=== PATIENT | female | born 1935 | race Caucasian/White ===

== ENCOUNTER 2023-09-16 09:15 | Outpatient (AMB) | payer MEDICARE, SELFPAY ==
--- NOTE | 2023-09-16 09:12 | AM.OFFWIN_ITS ---
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 Patient denies having any fevers, chills, ear pain, sore throat, chest pain, shortness of breath or weight gain. Patient has not taken any medication for treatment of her symptoms. [facility] Social History Patient Tobacco Use Status: Never used Tobacco Review of Systems Const All systems reviewed & are unremarkable except as noted in HPI and below Denies chills, Reports fatigue, Denies fever(s), Denies headache(s), Reports lethargy and Denies weight gain Eyes Reports no additional complaints ENT Reports no additional complaints and Denies headache(s) Card Reports no additional complaints and Denies dyspnea Resp Reports cough, Denies pain with cough, Denies dyspnea and Denies wheezing GI Reports no additional complaints Reports no additional complaints Musc Reports no additional complaints Skin/Breast Reports system reviewed and no additional complaints, except as documented Neuro Reports no additional complaints and Denies headache(s) Psych Reports no additional complaints Endo Reports no additional complaints and Reports fatigue Aller/Immun Denies wheezing Physical Exam Vital Signs: Last Vital Signs Temp 97.9 F 09/16/23 09:16 Pulse 68 09/16/23 09:16 BP 140/70 H 09/16/23 09:16 Pulse Ox 97 09/16/23 09:16 Oxygen Delivery Method Room Air 09/16/23 09:16 BMI result Body Mass Index 21.4 Patient is afebrile. Const General: cooperative, healthy appearing, comfortable, no acute distress, alert and awake Nutritional Appearance: thin Orientation/consciousness: patient oriented x3 Limitations: no limitations HEENT Head: Yes normal to inspection Ears: hearing grossly normal bilaterally, external ears normal, TM's normal bilaterally and EAC's normal General nose exam: Normal external nose present Face and sinus: Yes normal facial exam and Yes sinuses nontender Mouth: Normal oral and palatal mucosa present and moist mucous membranes Teeth and gingiva: dentition normal Throat: Yes postnasal drainage Neck Lymphatic: no lymphadenopathy noted Resp Effort & Inspection: normal respiratory effort, able to speak in complete sentences, no audible wheezes, no cough and no respiratory distress Auscultation: clear to auscultation bilaterally Cardio Rate: abnormal rate Rhythm: abnormal rhythm and abnormal rhythm irregularly irregular Heart sounds: Murmur heart sound present Skin General skin exam: no rashes or lesions noted Neuro General: patient oriented x3 Psych Appearance: grossly normal Mental Status: mental status grossly normal Insight: Good insight present (Psych) Judgement: Good judgement present (Psych) Results Reviewed Results Reviewed: CXR: no acute infiltrate. Assessment & Plan Assessment & Plan (1) Allergic rhinitis: Comment: There are no acute findings noted on chest x-ray. Code(s): J30.9 - Allergic rhinitis, unspecified Qualifiers: Allergic rhinitis trigger: pollen Allergic rhinitis seasonality: seasonal Qualified Code(s): J30.1 - Allergic rhinitis due to pollen Plan: Loratadine once daily times 14 days. Follow up with primary care physician within 10-14 days for a re-evaluation of symptoms. Orders: Orders XR chest 2V Today R05.9 - Cough, unspecified Coding Level of Care Code New Pt Level 4 (91228) Diagnoses Seasonal allergic rhinitis due to pollen J30.1 Allergic rhinitis trigger: pollen Allergic rhinitis seasonality: seasonal Time Spent (min) 30
[2023-09-16 09:16] VITALS: BP 140/70; PULSE 68; TEMP 36.6; O2SAT 97; BMI 21.4
== END 2023-09-16 10:57 | disposition home or self-care (01) ==
PROVIDERS: PCP Family Medicine; Visit Provider Physician Assistant
DX: J30.1 Allergic rhinitis due to pollen (principal)
CPT/HCPCS: 99204

== ENCOUNTER 2023-09-16 09:31 | Outpatient (REF) | payer MEDICARE, SELFPAY ==
--- NOTE | ~2023-09-16 | XR_ITS ---
EXAMINATION: XR CHEST CLINICAL INFORMATION: Cough COMPARISON: None available. TECHNIQUE: 2 views of the chest were obtained. FINDINGS: The cardiac silhouette is enlarged. Hilar and mediastinal contours are unremarkable. The lungs are clear. No pleural effusion or pneumothorax. Degenerative changes of the spine and mild scoliosis. XR/XR chest 2V IMPRESSION: Enlarged cardiac silhouette.
== END 2023-09-16 09:32 | disposition home or self-care (01) ==
LOC: HO.HMGCX 09:31
PROVIDERS: PCP Family Medicine; Visit Provider Physician Assistant
DX: R05.9 Cough, unspecified (principal)
CPT/HCPCS: 71046

== ENCOUNTER 2024-06-02 09:35 | Outpatient (AMB) | payer MEDICARE, SELFPAY ==
--- OUTSIDE RECORDS SUMMARY | 2024-06-02 09:36 | XMS_ITS | Continuity of Care Document ---
Author Organization [facility] Address [address] [place] [address]- Care Team Providers Care Willow Analyst Name Role Phone Cristiano MEZA, Missy Patel Primary Care Physician [phone] Encounter [facility] Date(s): 04/26/24 - 05[facility]03/24 [facility] [address] [address]- Attending Physician: Missy Quinonez MD Encounter Type: Office Visit Allergies, Adverse Reactions, Alerts No Known Allergies Immunizations Given and Recorded Vaccine Date Status Refusal Reason RSV vaccine preF3, recombinant 02/11/23 Recorded influenza virus vaccine, inactivated 12/15/22 Reji rded influenza virus vaccine, inactivated 11/11/21 Reji rded influenza virus vaccine, inactivated 12/19/20 Reji rded influenza virus vaccine, inactivated 12/07/19 Reji rded influenza virus vaccine, inactivated 12/22/18 Reji rded influenza virus vaccine, inactivated 1 01/20/18 Re corded influenza virus vaccine, inactivated 2 01/14/17 Gi mercedes influenza virus vaccine, inactivated 01/12/16 Give n influenza virus vaccine, inactivated 12/24/14 Give n influenza virus vaccine, inactivated 12/17/13 Give n influenza virus vaccine, inactivated 3 12/21/12 Gi mercedes influenza virus vaccine, inactivated 4 12/01/11 Gi mercedes influenza virus vaccine, inactivated 12/03/10 Give n influenza virus vaccine, inactivated 02/04/09 Give n influenza virus vaccine, inactivated 5 02/02/06 Gi mercedes SARS-CoV-2(COVID-19)mRNA-LNP vac([id number]) 12/15/22 Recorded zoster vaccine, inactivated 01/19/22 Recorded zoster vaccine, inactivated 11/11/21 Recorded [id number] 12y+ bivalent booster vax 12/04/21 Recorded SARS-CoV-2 (COVID-19) mRNA-1273 vaccine 07/03/21 R ecorded SARS-CoV-2 (COVID-19) mRNA BNT-162b2 vac 12/19/20 Recorded SARS-CoV-2 (COVID-19) mRNA BNT-162b2 vac 05/21/20 Recorded SARS-CoV-2 (COVID-19) mRNA BNT-162b2 vac 04/29/20 Recorded Influenza Virus Vaccine (oldterm) 11/27/19 Recorde d pneumococcal 13-valent vaccine 06/21/14 Given FluLaval (oldterm) 6 12/24/09 Given tetanus-diphtheria toxoids (Td) 05/26/09 Given tetanus-diphtheria toxoids (Td) 05/04/99 Given Zostavax (oldterm) 03/26/09 Given Influenza Inactive (IM) (oldterm) 7 01/12/08 Given Influenza Inactive (IM) (oldterm) 01/12/07 Given Pneumococcal Vaccine (oldterm) 10/09/99 Given 1Result Comment: [02/03/2018] as per pt done at [facility] 2Result Comment: [01/14/2017] [id number] 3Admin Note: FLUARIX 4Admin Note: VIS Given Flulaval 5Admin Note: GIVEN IN CLINIC SHMA 6Admin Note: Etece Tiffanie of [facility] [place] VIS [phone] given 7Admin Note: given in clinic Medications amLODIPine 5 mg oral tablet 1 tablet, By Mouth, Daily, # 90 tablet, 3 Refills, Maintenance, 04/26/24 9:56:00 AM EST, [id number], 160, cm, 04/26/24 9:44:00 EST, Height, 62.3, kg, 10/09/22 8:43:00 EDT, Dry Weight Start Date: 04/26/24 Status: Ordered Quantity: 90.0 Unit: tablet Repeat number: 4 cloNIDine 0.1 mg oral tablet 1, tablet, By Mouth, 2 times a day, for 90 days, # 180 tablet, Refills 3, Tot. Refills 3, PhysicianStop 06/18/25 4:15:00 PM EDT, 06/23/24 4:15:00 PM EDT, Route to Pharmacy Electronically, [id number], 160, cm, 04/26/24 9:44:00 EST, Height, 62.3, kg, 10/09/22 8:43:00 EDT, Dry Weight Start Date: 06/23/24 Stop Date: 06/18/25 Status: Ordered Quantity: 180.0 Unit: tablet Repeat number: 4 cloNIDine 0.1 mg oral tablet 1, tablet, By Mouth, 2 times a day, for 90 days, # 180 tablet, Refills 1, Tot. Refills 1, PhysicianStop 06/23/24 4:15:00 PM EDT, 12/26/23 4:15:00 PM EDT, Route to Pharmacy Electronically, [id number], 160, cm, 07/07/23 8:40:00 EDT, Height, 62.3, kg, 10/09/22 8:43:00 EDT, Dry Weight Start Date: 12/26/23 Stop Date: 06/23/24 Status: Ordered Quantity: 180.0 Unit: tablet Repeat number: 2 ferrous fumarate 325 mg oral tablet 1 tablet = 325 mg, By Mouth, Daily, for 90 days, # 90 tablet, 3 Refills, Hard Stop 07/01/24 8:55:00 AM EDT, 07/07/23 8:55:00 AM EDT, Tablet, [id number], Partial fill upon patient request if the prescription is for a schedule II opioid drug., 160, cm, 07/07/23 8:40:00 EDT, Height, 62.3, kg, 10/09/22 8:43:00 EDT, Dry Weight Start Date: 07/07/23 Stop Date: 07/01/24 Status: Ordered Quantity: 90.0 Unit: tablet Repeat number: 4 ferrous fumarate 325 mg oral tablet 1 tablet = 325 mg, By Mouth, Daily, # 90 tablet, 3 Refills, Maintenance, 07/01/24 8:55:00 AM EDT, Tablet, [id number], Partial fill upon patient request if the prescription is for a schedule II opioid drug., 160, cm, 04/26/24 9:44:00 EST, Height, 62.3, kg, 10/09/22 8:43:00 EDT, Dry Weight Start Date: 07/01/24 Status: Ordered Quantity: 90.0 Unit: tablet Repeat number: 4 ferrous sulfate 325 mg oral tablet 1 tablet = 325 mg, By Mouth, Daily, # 90 tablet, 0 Refills, Maintenance, 07/07/23 8:44:00 AM EDT, Tablet, Partial fill upon patient request if the prescription is for a schedule II opioid drug. Start Date: 07/07/23 Status: Ordered Quantity: 90.0 Unit: tablet Repeat number: 1 furosemide 40 mg oral tablet 40 mg, 1, tablet, By Mouth, Daily, for 90 days, # 90 tablet, Refills 3, Tot. Refills 3, Hard Stop 05/13/24 12:21:00 PM EST, 05/19/23 12:21:00 PM EST, Route to Pharmacy Electronically, [id number], Partial fill upon patient request if the prescription is for a schedule II opioid drug., 160, cm,10/09/22 8:38:00 EDT, Height, 62.3, kg, 10/09/22 8:43:00 EDT, Dry Weight Start Date: 05/19/23 Stop Date: 05/13/24 Status: Ordered Quantity: 90.0 Unit: tablet Repeat number: 4 furosemide 40 mg oral tablet 40 mg, 1, tablet, By Mouth, Daily, # 90 tablet, Refills 3, Tot. Refills 3, Maintenance, 05/13/24 12:21:00 PM EST, Route to Pharmacy Electronically, [id number], Partial fill upon patient request if the prescription is for a schedule II opioid drug., 160, cm, 04/26/24 9:44:00 EST, Height, 62.3, kg, 10/09/22 8:43:00 EDT, Dry Weight Start Date: 05/13/24 Stop Date: 05/08/25 Status: Ordered Quantity: 90.0 Unit: tablet Repeat number: 4 Metoprolol Tartrate 100 mg oral tablet 1 tablet, By Mouth, 2 times a day, # 180 tablet, 3 Refills, Maintenance, 03/08/24 10:30:00 AM EST, [id number], 160, cm, 12/29/23 17:03:00 EDT, Height, 62.3, kg, 10/09/22 8:43:00 EDT, Dry Weight Start Date: 03/08/24 Status: Ordered Quantity: 180.0 Unit: tablet Repeat number: 4 ProAir HFA 90 mcg/inh inhalation aerosol with adapter 2, puffs, Inhalation, Every 4 hours, PRN, # 1 each, Refills 5, Tot. Refills 5, Maintenance, 07/10/2209:06:00 AM EDT, Aerosol, Route to Pharmacy Electronically, [id number], [facility], 160, cm, 07/10/21 9:41:00 EDT, Height Start Date: 07/10/21 Status: Ordered Quantity: 1.0 Unit: each Repeat number: 6 simvastatin 20 mg oral tablet 1, tablet, By Mouth, Daily at bedtime, for 90 days, # 90 tablet, Refills 3, Tot. Refills 3, Physician Stop 06/24/24 10:04:00 AM EDT, 06/30/23 10:04:00 AM EDT, [id number], cm, 06/22/23 9:27:00 EDT, Height, 62.3, kg, 10/09/22 8:43:00 EDT, Dry Weight Start Date: 06/30/23 Stop Date: 06/24/24 Status: Ordered Quantity: 90.0 Unit: tablet Repeat number: 4 simvastatin 20 mg oral tablet 1, tablet, By Mouth, Daily at bedtime, for 90 days, # 90 tablet, Refills 3, Tot. Refills 3, Physician Stop 06/19/25 10:04:00 AM EDT, 06/24/24 10:04:00 AM EDT, [id number] 160, cm, 04/26/24 9:44:00 EST, Height, 62.3, kg, 10/09/22 8:43:00 EDT, Dry Weight Start Date: 06/24/24 Stop Date: 06/19/25 Status: Ordered Quantity: 90.0 Unit: tablet Repeat number: 4 warfarin 2.5 mg oral tablet 1 tablet, By Mouth, Daily, DIRECTED., # 90 tablet, 3 Refills, Maintenance, 04/26/24 9:56:00 AM EST, [id number], 160, cm, 04/26/24 9:44:00 EST, Height, 62.3, kg, 10/09/22 8:43:00 EDT, Dry Weight Start Date: 04/26/24 Status: Ordered Quantity: 90.0 Unit: tablet Repeat number: 4 warfarin 5 mg oral tablet 1 tablet = 5 mg, By Mouth, Daily, TAKE 1 TABLET EVERY DAY OR DIRECTED BY PCP OFFICE ACCORDING TOINR, # 90 tablet, 1 Refills, Maintenance, 03/09/23 10:00:00 AM EST, Tablet, [id number], Partial fill upon patient request if the prescription is for a schedule II opioid drug., 160, cm, 10/09/22 8:38:00 EDT, Height, 62.3, kg, 10/09/22 8:43:00 EDT, Dry Weight Start Date: 03/09/23 Status: Ordered Quantity: 90.0 Unit: tablet Repeat number: 2 Problem List Condition Confirmation Course Effective Dates Status Health Status Informant AF - Atrial fibrillation Confirmed Active AA (alcohol abuse) Confirmed Active 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 Chronic kidney disease, stage 3b 1 Confirmed Active Diabetic nephropathy Confirmed Active Gout Confirmed Active Hepatitis Confirmed Active Hypercholesterolemia Confirmed Active Hypertension Confirmed Active Anemia, iron deficiency Confirmed Active Cancer, colon Confirmed Active Megaloblastic erythropoiesis Confirmed Active Type 2 diabetes mellitus Confirmed Active 1Per chart review meeting GFR criteria Vital Signs Most recent to oldest [Reference Range]: 1 2 Height 160 cm (04/26/24 11:59 AM) 160 cm (04/26/24 9:44 AM) Weight 55.10 kg (04/26/24 9:44 AM) Oxygen Saturation [94-100 %] 98 % (04/26/24 9:44 AM) Pulse Rate [55-90 bpm] 68 bpm (04/26/24 9:44 AM) Body Mass Index [18.5-24.99 kg/m2] 21.52 kg/m2 (04/26/24 9:44 AM) Blood Pressure [90-138/55-84 mm Hg] 136/ 70mm Hg (04/26/24 11:59 AM) 146/72mm Hg *H* (04/26/24 9:44 AM) Temperature [96.8-100.4 DegF] 96.7 DegF *L* (04/26/24 9:44 AM) Mode of Delivery (Oxygen) Room air (04/26/24 9:44 AM) Blood pressure sites Arm, left (04/26/24 9:44 AM) Temperature Route Temporal (04/26/24 9:44 AM) Weight Obtained Via Standing scale (04/26/24 9:44 AM) Social History Social History Type Response Smoking Status Never smoker; Tobacc o user in household: Yes; Other: ; entered on: 06/21/14 Sex Sex Representation Female (finding) Note * Ashlie Martinez: PERFORM Event Display: Patient Education/Instruction Authored Date: [id number] Ambulatory Adult Visit Summary [facility] [address] [address] Name: CARLY ALEXANDRE : 1935?? Visit: 04/26/2024 09:20?? Ambulatory Visit Instructions ?? Your Care Team Primary Care Provider Missy Quinonez MD? This Visit Provider Missy Quinonez MD Your Diagnosis Hypercholesteremia Vitals Signs Temperature:??96.7 DegF??Low Height: 160 cm Pulse Rate: 68 bpm Weight: 55.1 kg Systolic Blood Pressure:??146 mm Hg??High Body Mass Index: 21.52 kg/m2 Diastolic Blood Pressure: 72 mm Hg Body surface area: 1.56 Oxygen Saturation: 98 % ?? What to do next Future Orders INR - Routine, Once, 06/17/23 3:00:00 EDT every 1 week(s) for 6 months, Future Order, [facility], Blood?? Lipid Panel - Routine, Once, 04/26/24 10:04:00 EST, Future Order, [facility], Blood?? Comprehensive Metabolic Panel - Routine, Once, 04/26/24 10:04:00 EST, Future Order, [facility], Blood?? Medications The list below reflects the information in our records and provided by you today along with any changes made during this visit. Please continue your medications until treatment is completed or stopped by your provider. If this is different from the information you have or there are other questions,please contact the prescribing provider. What How Much When Instructions New Amlodipine (amLODIPine 5 mg oral tablet) 1 tab(s) Oral Daily Refills: 3 Pickup at [id number] Changed Clonidine (cloNIDine 0.1 mg oral tablet) 1 tab(s) Oral Twice a day Duration: 90 Days Changed Clonidine (cloNIDine 0.1 mg oral tablet) 1 tab(s) Oral Twice a day Duration: 90 Days Pickup at [facility] Changed Ferrous Fumarate (ferrous fumarate 325 mg oral tablet) 1 tab(s) Oral [facility] Changed Ferrous Fumarate (ferrous fumarate 325 mg oral tablet) 1 tab(s) Oral Daily Duration: 90 Days Changed Furosemide (furosemide 40 mg oral tablet) 1 tab(s) Oral Daily Duration: 90 Days Pickup at [facility] Changed Furosemide (furosemide 40 mg oral tablet) 1 tab(s) Oral Daily Duration: 90 Days Changed Simvastatin (simvastatin 20 mg oral tablet) 1 tab(s) Oral Daily at Bedtime Duration: 90 Days [facility] Changed Simvastatin (simvastatin 20 mg oral tablet) 1 tab(s) Oral Daily at Bedtime Duration: 90 Days Unchanged Albuterol (ProAir HFA 90 mcg/ inh inhalation aerosol with adapter) 2 puff(s) Inhalation Every 4 hours as needed for for wheezing Unchanged Ferrous Sulfate (ferrous sulfate 325 mg oral tablet) 1 tab(s) Oral Daily Unchanged Metoprolol (Metoprolol Tartrate 100 mg oral tablet) 1 tab(s) Oral Twice a day Unchanged Warfarin (warfarin 2.5 mg oral tablet) 1 tab(s) Oral Daily DIRECTED. ?? [facility] Unchanged Warfarin (warfarin 5 mg oral tablet) 1 tab(s) Oral Daily TAKE 1 TABLET EVERY DAY OR DIRECTED BY PCP OFFICE ACCORDING TO INR ?? Pharmacy Information [facility][id number]: [address] [place] [id number] [phone] ?? What How Much When Comments Stop Taking Pantoprazole (pantoprazole 40 mg oral delayed release tablet) 1 tab(s) Oral Daily Duration: 90 Days Test Performed Below is a partial list of the tests performed during your Visit. You may have had other tests and procedures not included in this list. Please discuss all test results with your provider. Comprehensive Metabolic Panel?-- Results Pending -- Lipid Panel?-- Results Pending -- Medications and Immunizations Administered Medications Given During Visit No medications given during this visit.?? Allergies (NKA means No Known Allergies) NKA Common Emergency Awareness Tips IS IT A STROKE? Act FAST and Check for these signs: FACE Does the face look uneven? ARM Does one arm drift down? SPEECH Does their speech sound strange? TIME Call at any sign of stroke ?? Heart Attack Signs Chest discomfort: Most heart attacks involve discomfort in the center of the chest and lasts more than a few minutes, or goes away and comes back. It can feel like uncomfortable pressure, squeezing, fullness or pain. Discomfort in upper body: Symptoms can include pain or discomfort in one or both arms, back, neck, jaw or stomach. Shortness of breath: With or without discomfort. Other signs: Breaking out in a cold sweat, nausea, or lightheaded. Remember, MINUTES DO MATTER. If you experience any of these heart attack warning signs, call to get immediate medical attention! ?? Smoking can increase your chances of developing chronic health problems and can cause harmful effects to other family members in your house. If you smoke, you are strongly encouraged to quit. Please call [facility] at [phone] or 6-177-761[employer] TV ([phone]) or log in to [email or web address] for referrals to smoking cessation programs. ?? The National Suicide Prevention Hotline is available 18/10 if you or someone you know needs to find a reason to keep living. By calling 6-770-700-Tunii (8476) you'll be connected to a skilled, trained counselor at a crisis center in your area. [facility] You can view and manage your care through the patient portal or by using a health care mago of your choosing. [employer] is a website that allows you to securely view your medical information including your hospital discharge summary, office visit summaries, medications and follow-up visits. You can also request appointments, renew medications, and request access to your medical information using a health care mago of your choosing, or just ask a question. You can enroll at [email or web address] or register during your next office visit. [facility], in keeping with [facility] guidance, no longer requires face masks for staff, patientsor visitors in most situations. Similiar to time spent indoors at other locations, there is the chance that you were exposed to repiratory viruses during your time with us (such as flu or COVID-19). If you develop symptoms concerning for a viral respiratory infection, please seek testing (and treatment if indicated) from your medical provider or home test kit. ?? Disclaimer: The information provided is of a general nature and is intended to be used in conjunction with the recommendations and advice of your health care practitioner. Every effort has been made to ensure that the information provided is accurate and complete at the time it is provided to you however, as your needs change, or, as new information becomes available, different or additional instructions may be required. ?? If you have questions, please consult with your primary care provider or pharmacist, as appropriate. This information is not intended to serve as substitution for assessment and evaluation by a qualified health care provider. If you do not have a primary care provider, you may find a [facility] provider by calling [facility] at [phone]. Patient Care team information Care Team Personnel Name: Missy Quinonez MD Position: [facility] Physician - Primary Care Member Role: PCP Address: [address] [place] [address] Telecom: Name: Neris Rosado Position: [facility] Outreach Member Role: [employer] Consult[employer] Physician Care Team Related Persons Name: LISSETT ALEXANDRE Name: JOSEPH ALEXANDRE Insurance Providers Guarantor name: CARLY ALEXANDRE Health Plan Information #: 1 [place] [facility] [employer] [facility] Member Number: [id number] Policy Number: NA Group Number: [id number] Health Plan Information #: 2 [place] [facility] [employer] [facility] Member Number: [id number] Policy Number: NA Group Number: [id number]
--- OUTSIDE RECORDS SUMMARY | 2024-06-02 09:36 | XMS_ITS | Clinical Summary ---
Author Organization [facility] Address [address] [place] [address] Care Team Providers Care Appointment Coordinator Name Role Phone Missy Quinonez MD Primary Care Provider [phone] Social History Tobacco Use Types Packs/Day Years Used Date Smoking Tobacco: Never Assessed Comments Unknown Sex and Gender Information Value Date Recorded Sex Assigned at Not on file Legal Sex Female 2:53 AM EST Gender Identity Not on file Sexual Orientation Not on file Plan of Treatment Health Maintenance Due Date Last Done Comments DTaP,Tdap,and Td Vaccines (1 - Tdap) 1954 Pneumococcal Vaccine: 50+ Ye ars (1 of 1 - PCV) 06/11/1987 Zoster Vaccines (1 of 2) 06/11/1987 RSV Immunization Patients 60 + Years Old (1 - 1-dose 75+ series) 2012 Depression Screening 02/28/2022 Falls Risk Assessment 02/28/2022 Osteoporosis Screening (Bone Density Screening) 02/28/2022 Social Influencers of Health Screening 02/28/2022 COVID-19 Vaccine ( - 2023-2 5 season) 2023 Influenza Vaccine (#1) 2023 HIB Vaccines Aged Out No longer eligi ble based on patient's age to complete this topic HPV Vaccines Aged Out No longer eligi ble based on patient's age to complete this topic Hepatitis A Vaccines Aged Out No long er eligible based on patient's age to complete this topic Hepatitis B Vaccines Aged Out No long er eligible based on patient's age to complete this topic IPV Vaccines Aged Out No longer eligi ble based on patient's age to complete this topic MMR Vaccines Aged Out No longer eligi ble based on patient's age to complete this topic Meningococcal ACWY Vaccine Aged Out N o longer eligible based on patient's age to complete this topic Meningococcal B Vacine Aged Out No lo nger eligible based on patient's age to complete this topic RSV Immunization Patients Un anderson 20 months Aged Out No longer eligible b ased on patient's age to complete this topic Varicella Vaccines Aged Out No longer eligible based on patient's age to complete this topic Care Teams Appointment Coordinator Relationship Specialty Start Date End Date Missy Quinonez MD [address] [place] [address], [address] [place] [address] PCP - General 11/06/20
--- OUTSIDE RECORDS SUMMARY | 2024-06-02 09:36 | XMS_ITS | Clinical Summary ---
Author Organization [facility] Address [address] [place] [address] Phone Care Team Providers Care Yard Foreman Name Role Phone Missy Quinonez Primary Care Provider [phone] [facility] Unavailable [phone] Reason for Visit and Chief Complaint Post Op Visit/Follow Up Plan of Treatment Pending Tests Order Diagnosis Results Due Ordering P andre Follow Up - Appointment 1 Month Displaced intertrochanteric fracture of left femur, init 06/22/22 Glenis Holm MD Last Documented On 3 10:40AM ; [facility] [place] Assessments Includes: Assessments from this encounter No Assessments Recorded Medical Equipment - Implanted Devices Includes: Current Devices No Medical Equipment Recorded Medications Administered Includes: Administered Medications from this encounter No Administered Medications Recorded Results Includes: Results discussed during this encounter No Results Recorded For Specified Dates History of Present Illness Includes: History of Present Illness from this encounter No History of Present Illness Recorded Social History No Social History Recorded - Smoking Status Unknown Medical History Includes: Medical History addressed during this encounter No Medical History Recorded Family History Includes: Family History addressed during this encounter No Family History Recorded Review of Systems Includes: Review of Systems from this encounter Chief complaint Status post ORIF left hip on 06/04/[address] Cooney HPI Patient presents today from rehab. She is overall doing well and complains of no specific issues. Examination Warm well-perfused leg with good sensation in the toes Able to move her toes without significant issues Limited range of motion of the hip and knee because of pain There is some swelling and ecchymoses involving the left hip and thigh area Passively she is able to tolerate good range of motion of the hip X-rays reviewed and show well aligned hardware in good position Assessment plan She is progressing appropriately. [place] removed today. Steri-Strips placed. Okay to get the incision wet. Okay to do scar massage. Continue work with PT/OT. Follow- up in 4 to 6 weeks. Rest, ice, elevate to help decrease pain and swelling. Use a walker to help assist with walking to avoid additional falls. Mental Status Includes: Mental Status from this encounter No Mental Status Recorded Functional Status Includes: Functional Status from this encounter No Functional Status Recorded Physical Exam Includes: Physical Exam from this encounter No Physical Exam Recorded Encounters Encounter Provider Location Date Check-In Time Check-Out Time Diagnosis Post Op Visit/Follow Up Glenis Holm MD [facility] 06/22/19 23 8:40AM 9:34AM Insurance Includes: Active Insurance Policies Plan Name Member ID Group # Subscriber Relationship Effect denice Dates 1 - [employer] [id number] Isabel Monzon 2 - Medicare Part B [facility] [id number] Isabel Monzon Clinical Notes Includes: Clinical Notes from this encounter * Progress note Date Encounter Last Documented by 06/21/2022 Post Op Visit/Follow Up Last doc umented on 06/22/2022; 10:40 AM, Glenis Holm MD; [facility] Plan StartCited - Displaced intertrochanteric fracture of left femur, init Follow Up/Appointment: 1 Month EndCited User Defined 4 Chief complaint Status post ORIF left hip on 06/04/[address] Cooney HPI Patient presents today from rehab. She is overall doing well and complains of no specific issues. Examination Warm well-perfused leg with good sensation in the toes Able to move her toes without significant issues Limited range of motion of the hip and knee because of pain There is some swelling and ecchymoses involving the left hip and thigh area Passively she is able to tolerate good range of motion of the hip X-rays reviewed and show well aligned hardware in good position Assessment plan She is progressing appropriately. [place] removed today. Steri-Strips placed. Okay to get the incision wet. Okay to do scar massage. Continue work with PT/OT. Follow- up in 4 to 6 weeks. Rest, ice, elevate to help decrease pain and swelling. Use a walker to help assist with walking to avoid additional falls.
--- OUTSIDE RECORDS SUMMARY | 2024-06-02 09:37 | XMS_ITS ---
Author Organization [facility] Address [address] [place] [address] Phone Care Team Providers Care Financial Assistance Specialist Name Role Phone Missy Quinonez Primary Care Provider [phone] [facility], Unavailable [phone] Plan of Treatment No Plan of Treatment Recorded Assessments Includes: Assessments for all patient encounters No Assessments Recorded Medical Equipment - Implanted Devices Includes: Current and historical Devices No Medical Equipment Recorded Medications Administered Includes: Administered Medications in patient's chart No Administered Medications Recorded Results Includes: Results from 06/03/2023 through 06/02/2024 No Results Recorded For Specified Dates History of Present Illness History of Present Illness not supported for this document type No History of Present Illness Recorded Social History No Social History Recorded - Smoking Status Unknown Medical History Includes: Medical History in patient's chart No Medical History Recorded Family History Includes: Family History in patient's chart No Family History Recorded Review of Systems Review of Systems not supported for this document type No Review of Systems Recorded Mental Status No Mental Status Recorded Functional Status No Functional Status Recorded Physical Exam Physical Exam not supported for this document type No Physical Exam Recorded Insurance Includes: Active Insurance Policies Plan Name Member ID Group # Subscriber Relationship Effect denice Dates 1 - [employer] [id number] Isabel Monzon 2 - Medicare Part B [facility] [id number] Isabel Monzon Clinical Notes Includes: Signed Clinical Notes starting from 03/07/2022 No Clinical Notes Recorded
--- OUTSIDE RECORDS SUMMARY | 2024-06-02 09:37 | XMS_ITS | Continuity of Care Document ---
Author Organization [facility] Address [address] [place] [address]- Care Team Providers Care Market Research Interviewer Name Role Phone Cristiano MEZA, Missy Patel Primary Care Physician Encounter [facility] Date(s): [facility]/26/24 [facility] [address] [address]- Attending Physician: Missy Quinonez MD Encounter Type: [...] vaccine, inactivated 5 02/02/06 [facility] SARS-CoV-2(COVID-19)mRNA-LNP vac([id number]) 12/15/22 Recorded zoster vaccine, inactivated 01/19/22 Recorded zoster vaccine, inactivated 11/11/21 Recorded [id number] 12y+ bivalent booster vax 12/04/21 Recorded SARS-CoV-2 [...] Comment: [02/03/2018] as per pt done at [facility] 2Result Comment: [01/14/2017] [id number] 3Admin Note: FLUARIX 4Admin Note: VIS Given Flulaval 5Admin Note: GIVEN IN CLINIC SHMA 6Admin Note: [email or web address] Tiffanie of [facility] VIS [phone] given 7Admin Note: given in clinic Medications [...] PM EDT, Route to Pharmacy Electronically, [id number], 160, cm, 04/26/24 9:44:00 EST, Height, 62.3, [...] PM EDT, Route to Pharmacy Electronically, [id number], 160, cm, 07/07/23 8:40:00 EDT, Height, 62.3, kg, 10/09/22 8:43:00 EDT, Dry Weight Start Date: 12/26/23 Stop Date: 06/23/24 Status: Ordered Quantity: 180.0 Unit: tablet Repeat number: 2 ferrous fumarate 325 mg oral tablet 1 tablet = 325 mg, By Mouth, Daily, for 90 days, # 90 tablet, 3 Refills, Hard Stop 07/01/24 8:55:00 AM EDT, 07/07/23 8:55:00 AM EDT, Tablet, [id number], Partial fill upon patient request if [...] Maintenance, 07/01/24 8:55:00 AM EDT, Tablet, [facility], Partial fill upon patient request if [...] PM EST, Route to Pharmacy Electronically, [id number], Partial fill upon patient request if [...] PM EST, Route to Pharmacy Electronically, [id number], Partial fill upon patient request if [...] Refills, Maintenance, 03/08/24 10:30:00 AM EST, [id number], 160, cm, 12/29/23 17:03:00 EDT, Height, 62.3, kg, 10/09/22 8:43:00 EDT, Dry Weight Start Date: 03/08/24 Status: Ordered Quantity: 180.0 Unit: tablet Repeat number: 4 ProAir HFA 90 mcg/inh inhalation aerosol with adapter 2, puffs, Inhalation, Every 4 hours, PRN, # 1 each, Refills 5, Tot. Refills 5, Maintenance, 07/10/2209:06:00 AM EDT, Aerosol, Route to Pharmacy Electronically, [id number], [facility], 160, cm, 07/10/21 9:41:00 EDT, Height Start Date: 07/10/21 Status: Ordered Quantity: 1.0 Unit: each Repeat number: 6 simvastatin 20 mg oral tablet 1, tablet, By Mouth, Daily at bedtime, for 90 days, # 90 tablet, Refills 3, Tot. Refills 3, Physician Stop 06/24/24 10:04:00 AM EDT, 06/30/23 10:04:00 AM EDT, [id number], [facility], cm, 06/22/23 9:27:00 EDT, Height, [...] 10:04:00 AM EDT, [id number], [facility], cm, 04/26/24 9:44:00 EST, Height, 62.3, kg, 10/09/22 8:43:00 EDT, Dry Weight Start Date: 06/24/24 Stop Date: 06/19/25 Status: Ordered Quantity: 90.0 Unit: tablet Repeat number: 4 warfarin 2.5 mg oral tablet 1 tablet, By Mouth, Daily, DIRECTED., # 90 tablet, 3 Refills, Maintenance, 04/26/24 9:56:00 AM EST, [facility], 160, cm, 04/26/24 9:44:00 EST, Height, 62.3, kg, 10/09/22 8:43:00 EDT, Dry Weight Start Date: 04/26/24 Status: Ordered Quantity: 90.0 Unit: tablet Repeat number: 4 warfarin 5 mg oral tablet 1 tablet = 5 mg, By Mouth, Daily, TAKE 1 TABLET EVERY DAY OR DIRECTED BY PCP OFFICE ACCORDING TOINR, # 90 tablet, 1 Refills, Maintenance, 03/09/23 10:00:00 AM EST, Tablet, [facility], Partial fill upon patient request if [...] PERFORM Event Display: Patient Education/Instruction Authored Date: [id number] Ambulatory Adult Visit Summary [facility] [address] [address] Name: CARLY ALEXANDRE : 1935?? Visit: 04/26/2024 [...] Oral Daily Refills: 3 Pickup at [facility] Changed Clonidine (cloNIDine 0.1 mg oral tablet) 1 tab(s) Oral Twice a day Duration: 90 Days Changed Clonidine (cloNIDine 0.1 mg oral tablet) 1 tab(s) Oral Twice a day Duration: 90 Days Pickup at [facility] Changed Ferrous Fumarate (ferrous fumarate 325 mg oral tablet) 1 tab(s) Oral Daily [facility] Changed Ferrous Fumarate (ferrous fumarate 325 mg oral tablet) 1 tab(s) Oral Daily Duration: 90 Days Changed Furosemide (furosemide 40 mg oral tablet) 1 tab(s) Oral Daily Duration: 90 Days Pickup at [facility] Changed Furosemide (furosemide 40 mg oral tablet) 1 tab(s) Oral Daily Duration: 90 Days Changed Simvastatin (simvastatin 20 mg oral tablet) 1 tab(s) Oral Daily at Bedtime Duration: 90 Days [facility] Changed Simvastatin (simvastatin 20 mg oral [...] tab(s) Oral Daily DIRECTED. ?? [facility] Unchanged Warfarin (warfarin 5 mg oral tablet) 1 tab(s) Oral Daily TAKE 1 TABLET EVERY DAY OR DIRECTED BY PCP OFFICE ACCORDING TO INR ?? Pharmacy Information [id number]: [address] [place] [id number] [phone] ?? What How Much When Comments Stop [...] are strongly encouraged to quit. Please call [facility] at [phone] or [phone] ([phone]) or log in to [email or web address] for referrals to smoking cessation programs. ?? The National Suicide Prevention Hotline is available 18/10 if you or someone you know needs to find a reason to keep living. By calling 7-143-302-Plurality (8599) you'll be connected to a skilled, trained counselor at a crisis center in your area. [facility] Health Portal You can view and manage your care through the patient portal or by using a health care mago of your choosing. [employer] is a website that allows you to securely view your medical information including your hospital discharge summary, office visit summaries, medications and follow-up visits. You can also request appointments, renew medications, and request access to your medical information using a health care mago of your choosing, or just ask a question. You can enroll at [email or web address] or register during your next office visit. [facility], in keeping with [facility] guidance, no longer requires face masks for [...] primary care provider, you may find a [facility] provider by calling [facility] at [phone]. Patient Care team information Care Team Personnel Name: Missy Quinonez MD Position: [facility] Physician - Primary Care Member Role: PCP Address: [address] [place] [address] Telecom: Name: Neris Rosado Position: [facility] Outreach Member Role: [employer] Physician Care Team Related Persons Name: LISSETT ALEXANDRE Name: JOSEPH ALEXANDRE Insurance Providers Guarantor name: CARLY ALEXANDRE Health Plan Information #: 1 Payer: MEDICARE [facility] [employer] [facility] Member Number: [id number] Policy Number: NA Group Number: [id number] Health Plan Information #: 2 Payer: MEDICARE [facility] [employer] [facility] Member Number: [id number] Policy Number: NA Group Number: [id number]
--- OUTSIDE RECORDS SUMMARY | 2024-06-02 09:37 | XMS_ITS ---
Care Plan - [facility] Created on: June 02, 2024 AlixIsabel barber : 1935 Sex: Female Author Organization [facility] Address [address] [place] [address] Phone Care Team Providers Care Well Shooter Name Role Phone Missy Quinonez Primary Care Provider [phone] [facility] Unavailable [phone]
--- OUTSIDE RECORDS SUMMARY | 2024-06-02 09:37 | XMS_ITS | Clinical Summary ---
Author Organization [facility] Address [address] [place] [address] Phone Care Team Providers Care Cabinetmaker Supervisor Name Role Phone Missy Quinonez Primary Care Provider [phone] [facility] [phone] Reason for Visit and Chief Complaint Established Patient Plan of Treatment No Plan of Treatment Recorded Assessments Includes: Assessments from this encounter No Assessments Recorded Medical Equipment - Implanted Devices Includes: Current Devices No Medical Equipment Recorded Medications Administered Includes: Administered Medications from this encounter No Administered Medications Recorded Vital Signs Includes: Vital Signs from this encounter Vital Name 09/02/2022 09:15A Blood Pressure Sitting (mmHg) 121/69 Pulse Rate-Sitting (bpm) 60 Temp-Temporal 97.2 Height (in) 63 Weight (lb) 130 Body Mass Index 23 Body Surface Area 1.6 Oxygen Saturation (%) 99 Last Documented: On 09/02/2022 9:15AM ; [facility] Results Includes: Results discussed during this encounter [...] Includes: Review of Systems from this encounter No Review of Systems Recorded Mental Status Includes: Mental Status from this encounter No Mental Status Recorded Functional Status Includes: Functional Status from this encounter No Functional Status Recorded Physical Exam Includes: Physical Exam from this encounter Encounters Encounter Provider Location Date Check-In Time Check-Out Time Diagnosis Established [facility]00[facility] 9:29AM Insurance Includes: Active Insurance Policies Plan Name Member ID Group # Subscriber Relationship Effect denice Dates 1 - [employer] [id number] Isabel Monzon 2 - Medicare Part B [facility] [id number] Isabel Monzon Clinical Notes Includes: Clinical Notes from this encounter * Progress note Date Encounter Last Documented by 09/02/2022 Established Patient Last documeaustin hdz on 09/02/2022; 9:11 AM, Davi Cooney MD; [facility], Physical Findings Chief complaint: Follow-up ORIF left hip History of Present Illness: This is an 87-year-old woman who is status post ORIF of her left hip with short gamma nail by me on 06/04/2022. She was last seen on 07/22/2022. She has no complaints today. She is living independently. She is walking without an assistive device except when she is out of the house, when she is using a 4 pronged cane. She reports no pain. Physical exam: The patient is ambulating well without an assistive device. Her surgical wounds are nicely healed. Neurovascular exam is intact. There is no pain with hip motion. Imaging: Radiographs of the left hip taken today are compared with the prior images. There is continued satisfactory reduction of the fracture and position of the implants. There is evidence for fracture healing. Impression: Status post ORIF left hip Plan: The patient may continue to increase her activity gradually to tolerance. She may return to the office as needed.
--- OUTSIDE RECORDS SUMMARY | 2024-06-02 09:37 | XMS_ITS | Clinical Summary ---
Author Organization [facility] Address [address] [address] Care Team Providers Care Office Services Specialist Name Role Phone Missy Quinonez MD Primary Care Provider [phone] Allergies No known active allergies Medications amLODIPine (NORVASC) 5 MG tablet Take 1 tablet by mouth 1 (one) time each day Active cloNIDine (CATAPRES) 0.1 MG tablet Comments: Filled Date: Jul 08 2016 12:00AM Duration: 7 Active fosinopril (MONOPRIL) 10 MG tablet Comments: Filled Date: Jul 08 2016 12:00AM Duration: 7 Active furosemide (LASIX) 20 MG tablet Take 0.5 tablets by mouth 1 (one) time each day 7 Active metoprolol tartrate (LOPRESSOR) 100 MG tablet Comments: Filled Date: Jun 03 2016 12:00AM Duration: 7 Active simvastatin (ZOCOR) 20 MG tablet Comments: Filled Date: Jul 01 2016 12:00AM Duration: 7 Active warfarin (COUMADIN) 2.5 MG tablet Comments: Filled Date: Jun 14 2016 12:00AM Patient Notes: TAKE 1 TABLET BY MOUTH DAILY DIRECTED 14 DAY EMERGENCY SUPPLY UNTIL MAIL ORDER ARRIVES Duration: 7 Active Active Problems Problem Noted Date Diagnosed Date 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 Chronic kidney disease stage 3 05/03/2019 Family History Medical History Relation Comments Diabetes Mother Heart disease Mother Hypertension Sibling brother and hernan ter Relation Status Comments Father Mother Sibling Social History Tobacco Use Types Packs/Day Years Used Date Smoking Tobacco: Never Alcohol Use Standard Drinks/Week Comments Yes 0 (1 standard drink = 0.6 oz pure alcohol) Alcoholic Drinks/day: Occasional social drink Comments Unknown Sex and Gender Information Value Date Recorded Sex Assigned at Not on file Legal Sex Female 4:35 PM EST Gender Identity Not on file Sexual Orientation Not on file Last Filed Vital Signs Vital Sign Reading Time Taken Comments Blood Pressure 146/76 11/06/2018 12:00 PM EDT Pulse - - Temperature - - Respiratory Rate - - Oxygen Saturation - - Inhaled Oxygen Concentration - - Weight 71.9 kg (158 lb 9.6 oz) 11/06/2018 12:00 PM EDT Height 165.1 cm (5' 5 ) 11/06/2018 12:00 PM EDT Body Mass Index 26.39 11/06/2018 12:00 PM EDT Plan of Treatment Health Maintenance Due Date Last Done Comments Pneumococcal Vaccine: 65+ Ye ars (1 of 2 - PCV) 06/11/1941 02/06/2013 Influenza Vaccine (#1) 2023 12/11/2014 Hepatitis B Vaccine Aged Out No longe r eligible based on patient's age to complete this topic Care Teams Office Services Specialist Relationship Specialty Start Date End Date Missy Quinonez MD [address] [place] [address] PCP - General 01/30/19
--- OUTSIDE RECORDS SUMMARY | 2024-06-02 09:37 | XMS_ITS | Patient Health Record ---
Author Organization [facility] Address [address] [place] [address] Care Team Providers Care Ammonium Sulfate Operator Name Role Phone Missy Quinonez MD Primary Care Provider Unavailab Andi Mendez Unavailable [phone] Allergies No Known Allergies Reason For Referral No Information Medications Medication SIG (Take, Route, Frequency, Duration) Notes Start Date End Date Status Colcrys 0.6 MG 1 tablet Orally once a day for 7 days 06/02/2021 Active Fosinopril Sodium 10 MG 1 tablet Orally Once a day Not-Taking Colcrys 0.6 MG 1 tablet Orally Once a day for 5 days Active Antibiotic Not-Takin g cloNIDine HCl 0.2 MG 1 tablet Orally Twi ce a day for 30 day(s) Not-Taking Keflex 500 MG 1 capsule Orally jacque ry 12 hrs for 5 days 01/08/2022 Active amLODIPine Besylate 5 MG 1 tablet Orally Once a day for 30 day(s) Active Metformin & Diet Manage Prod 500 MG as directed Orally Not-Takin g Furosemide 40 MG 1 tablet Orally Once a day Active iron Active Metoprolol Tartrate 100 MG 1 tablet Orally Twice a day for 30 day(s) Active Simvastatin 20 MG 1 tablet every eveni ng Orally Once a day for 30 day(s) Active Warfarin Sodium 2.5 MG 1 tablet Orally O nce a day for 30 day(s) Active Immunizations Vaccine Route Administration Date Status Comme nts COVID-19 Pfizer BioNTech Vaccine Unknown 05/21/2020 Administered 1st 04/29/2020 Influenza Unknown 01/24/2020 Administered Social History Tobacco Use: Social History Observation Description Date Details (start date - stop date) Never Smoker NA - NA Tobacco Use/Smoking Question Answer Notes Are you a: nonsmoker Additional Findings: Tobacco Non-User Current no n-smoker Alcohol Screen Question Answer Notes Did you have a drink containing alcohol in the p ast year? Yes Points 0 Interpretation Negative Tobacco use other than smoking: Question Answer Notes Are you an other tobacco user? 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 Problem Type II diabetes mellitus without complication (206850356) Type 2 diabetes mellitus without complications (E11.9) Active confirmed Problem 14326416 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 Problem 423314399401427 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) Active confirmed Plan Of Treatment Pending Test Test Name Order Date X ray : Ankle, left 2V 06/02/2021 *Uric Acid, Serum 11/06/2020 *Uric Acid, Serum 06/02/2021 *Uric Acid, Serum 01/08/2022 *CBC With Differential/Platelet 01/09/20 *Sedimentation Rate-Westergren Basic Metabolic Panel (8) 01/08/2022 CBC 06/02/2021 ESR 06/02/2021 ESR 01/08/2022 X ray : Foot, left 3V 06/02/2021 X ray : Foot, right 3V 11/06/2020 X ray : Foot, right 3V 01/08/2022 16464-LLZSTXE NAIL, 6 OR MORE 01/16/2019 09620-GRCENFV NAIL, 6 OR MORE 05/31/2017 14372-YLYAMMW NAIL, 6 OR MORE 07/18/2018 90350-ARQVZWZ NAIL, 6 OR MORE 08/25/2011 28993-BWSIDCD NAIL, 6 OR MORE 12/07/2011 63203-EZSSNPL NAIL, 6 OR MORE 02/15/2012 14825-FZJXNCO NAIL, 6 OR MORE 05/02/2012 29932-KALAYVR NAIL, 6 OR MORE 08/01/2012 98288-TQRAOPU NAIL, 6 OR MORE 06/29/2013 21210-Mifm Destruction, 1-14 07/18/2018 47327-Wifj Destruction, 1-14 05/31/2017 25166-Bmod Destruction, 1-14 01/16/2019 40139-Hquarldl Plate 01/16/2019 47358-Zetiqssl Plate 07/18/2018 40994-Wzqhcgmr Plate 06/29/2013 48468-Xjcgjkxo Plate 08/01/2012 36639-Fsglnqoz Plate 05/02/2012 72302-Sdwgpglh Plate 02/15/2012 88606-Livleqyx Plate 08/25/2011 49962-Dfytnnsq Plate 12/07/2011 75783-Nhphfznz Plate Each Additional 06/2013 79721-Vqbdmkvd Plate Each Additional 37297-Vuoxzjzk Plate Each Additional 05210- Debride <25 sq cm 06/29/2013 28605 I&D ABSCESS- SIMPLE,SINGLE 014 06042 I&D ABSCESS- SIMPLE,SINGLE 018 16448 I&D ABSCESS- SIMPLE,SINGLE 013 04710 I&D ABSCESS- SIMPLE,SINGLE 013 81521 I&D ABSCESS- SIMPLE,SINGLE 012 79716 I&D ABSCESS- SIMPLE,SINGLE 012 53365 I&D ABSCESS- SIMPLE,SINGLE 012 Insurance Providers Payer Name Payer Address Payer Phone Subscriber Number Group Number Insured Name Patient Relationship to Insured Coverage Start Date Coverage End Date [facility] [address] [place] [address] [id number] Isabel Thomson Self - patient is the insured Medical (General) History Medical History History ICD Code cancer cataracts diabetic Gout chicken pox high blood pressure measles Cholesterol Mumps A fib Surgical History Surgery Date(Month/Year) cancer surgery for adenocarcinoma 2008 hysterectomy 2009 Hospitalization History Reason Date(Month/Year) [facility]-congestive heart failure 10/18-
--- NOTE | 2024-06-02 09:39 | AM.OFFWIN_ITS ---
Intake Vital Signs 06/02/24 09:40 Height 5 ft 3 in Weight 123 lb BMI 21.8 BP 140/80 H Blood Pressure Location Lt brachial Position Sitting Pulse 91 Pulse Source Pulse Oximeter Temp 98.3 F Pulse Oximetry (%) 97 Oxygen Delivery Method Room Air Intake Visit Reasons: EP-Rt wrist pain Patient Tobacco Use Status: Never used Tobacco Allergies No Known Allergies Allergy (Verified 06/02/24 09:40) HPI HPI Comments History of Present Illness Details This is an 88-year-old female with past medical history significant for rheumatoid arthritis who presented to the walk-in clinic complaining of right hand/wrist pain, swelling, and erythema. She states this started about 3 nights ago. She denies any known or specific trauma/injury but states she was using her right hand quite a bit to go up stairs before this started. She denies any fevers or chills. She is otherwise feeling well. She states she has had gout in the past. [facility] Social History Patient Tobacco Use Status: Never used Tobacco Review of Systems Const All systems reviewed & are unremarkable except as noted in HPI and below Reports no additional complaints Eyes Reports no additional complaints ENT Reports no additional complaints Card Reports no additional complaints Resp Reports no additional complaints GI Reports no additional complaints Reports no additional complaints Musc Reports no additional complaints Skin/Breast Reports system reviewed and no additional complaints, except as documented Neuro Reports no additional complaints Psych Reports no additional complaints Endo Reports no additional complaints Osman/Lymph Reports no additional complaints Aller/Immun Reports no additional complaints Physical Exam Vital Signs: Last Vital Signs Temp 98.3 F 06/02/24 09:40 Pulse 91 06/02/24 09:40 BP 140/80 H 06/02/24 09:40 Pulse Ox 97 06/02/24 09:40 Oxygen Delivery Method Room Air 06/02/24 09:40 BMI result Body Mass Index 21.8 Const Other: Vital signs reviewed. Constitutional: Non-toxic appearing. No acute distress. Well-developed and well-nourished. HEENT: Normocephalic and atraumatic. Skin: Warm and dry. No rashes or lesions noted. Neck: Full and painless range of motion. No cervical lymphadenopathy. Cardio: Regular rate. No lower extremity edema. No JVD. Pulmonary: No respiratory distress. No accessory muscle usage. Musculoskeletal: There is significant swelling of the right hand/wrist/fingers with tenderness to palpation of the right wrist and right metacarpals. No tenderness to palpation of the digits of the right hand. There is overlying erythema with mild warmth. She is able to flex and extend her wrist although she has limited range of motion due to pain and swelling. There is no tenderness to palpation the proximal radius/ulna. Neuro: Alert and oriented x4. Cranial nerves 2-12 grossly intact. No focal deficits appreciated. Psych: Normal mood and affect. Assessment & Plan Assessment & Plan (1) Swelling of right hand: Code(s): M79.89 - Other specified soft tissue disorders (2) Swelling of right wrist: Code(s): M25.431 - Effusion, right wrist (3) Acute gouty arthritis: Code(s): M10.9 - Gout, unspecified Plan This is an 88-year-old female with history of rheumatoid arthritis who presented to the walk-in clinic complaining of right hand/wrist pain/swelling/erythema x3 days. She denies any specific trauma or injury. On physical examination, there is significant swelling of the right digits, hands, and wrist with tenderness to palpation of the right wrist and metacarpals but no tenderness to palpation of the right digits and there is overlying erythema with mild warmth. Differential diagnosis includes sprain/strain versus fracture/dislocation versus acute gouty arthritis versus acute or chronic inflammatory arthritis, less likely cellulitis or septic arthritis given + range of motion although slightly limited due to pain/swelling and lack of fevers. An x-ray of the right wrist and right hand was obtained, which showed chronic changes related to her rheumatoid arthritis but was negative for acute fracture or dislocation. Patient very likely has an acute gouty/inflammatory arthritis. She was sent home on a prednisone taper as detailed below. She was instructed to proceed directly to the emergency room if she were to develop fever/chills, worsening/spreading erythema, or systemic symptoms such as fever/chills. Patient verbalized her understanding and she is in agreement with the plan. Orders: Orders XR wrist RT 2V Today M79.89 - Other specified soft tissue disorders Medications: New prednisone Take 4 tablets daily x3 days followed by 3 tablets daily x3 days followed by 2 tablets daily x3 days followed by 1 tablet daily x3 days. 10 mg PO DIRECTED 30 tabs 0RF Coding Level of Care Code Est Pt Level 3 (01098) Diagnoses Swelling of right hand M79.89 Swelling of right wrist M25.431 Acute gouty arthritis M10.9
[2024-06-02 09:40] VITALS: BP 140/80; PULSE 91; TEMP 36.8; O2SAT 97; BMI 21.8
== END 2024-06-02 10:37 | disposition home or self-care (01) ==
LOC: HO.HMCWIC 09:35
PROVIDERS: PCP Family Medicine; Visit Provider Physician Assistant Medical
DX: M79.89 Other specified soft tissue disorders (principal); M25.431 Effusion, right wrist; M10.9 Gout, unspecified

== ENCOUNTER → 2024-06-02 09:35 | Outpatient (BNVA) | payer MEDICARE, SELFPAY | PROVIDERS: PCP Family Medicine; Visit Provider Physician Assistant Medical ==

== ENCOUNTER 2024-06-02 10:02 | Outpatient (REF) | payer MEDICARE, SELFPAY ==
--- NOTE | ~2024-06-02 | XR_ITS ---
CLINICAL HISTORY: M79.89 - Other specified soft tissue disorders 3 view right hand Comparison: None Findings: Decreased bone mineralization. Mild blunting of the tip of the ulnar styloid may be sequela of remote injury or due to an erosion. Neighboring mild soft tissue swelling. 2 subchondral cysts versus erosions at level of the 5th carpometacarpal joint. Prominen dorsal soft tissue swelling at level of 5th PIP joint on the oblique view. 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 Severe degenerative changes at level of some of the PIP/DIP joints. Mild age-indeterminate ulnar subluxation at level of the 3rd and 4th PIP joints. Overlap of the 2nd metacarpal head/2nd proximal phalangeal base on the AP and oblique views with unremarkable alignment of the 2nd metacarpophalangeal joint on the lateral view. Finding may be artifactual /positional in nature or due to transient subluxation. Correlate clinically. No acute fracture. IMPRESSION: Mild age-indeterminate ulnar subluxation at level of the 3rd and 4th PIP joints. Overlap of the 2nd metacarpal head/2nd proximal phalangeal base on the AP and oblique views with unremarkable alignment of the 2nd metacarpophalangeal joint on the lateral view. Finding may be artifactual /positional in nature or due to transient subluxation. Correlate clinically. A few questionable erosions at level of the ulnar styloid tip and 5th carpometacarpal joint. Other findings as above. This document has been electronically signed by: Leida Lr MD on 06/02/2024 11:15:03
--- OUTSIDE RECORDS SUMMARY | 2024-06-02 10:04 | XMS_ITS | Clinical Summary ---
Author Organization [facility] Address [address] [place] [address] Care Team Providers Care Keyboard Instrument Repairer Name Role Phone Missy Quinonez MD Primary Care Provider [phone] Social History Tobacco Use Types Packs/Day Years [...] age to complete this topic Care Teams Keyboard Instrument Repairer Relationship Specialty Start Date End Date Missy Quinonez MD [address] [place] [address], [address] [place] [address] PCP - General 11/06/20
--- OUTSIDE RECORDS SUMMARY | 2024-06-02 10:04 | XMS_ITS | Clinical Summary ---
Author Organization [facility] Address [address] [place] [address] Phone Care Team Providers Care Tnt Powder Worker Name Role Phone iMssy Quinonez Primary Care Provider [phone] [facility] Un[facility] [phone] Reason for Visit and Chief Complaint Established [...] 99 Last Documented: On 09/02/2022 9:15AM ; [facility] Results Includes: Results discussed during this encounter [...] Time Diagnosis Established Patient Davi Cooney [facility] 09/03/19 9:00AM 9:29AM Insurance Includes: Active Insurance Policies Plan Name Member ID Group # Subscriber Relationship Effect denice Dates 1 - [employer] [id number] Isabel Monzon 2 - Medicare Part B [facility] [id number] Isabel Monzon Clinical Notes Includes: Clinical Notes from this encounter * Progress note Date Encounter Last Documented by 09/02/2022 Established Patient Last documeaustin hdz on 09/02/2022; 9:11 AM, Davi Cooney MD; [facility], Physical Findings Chief complaint: Follow-up [...]
--- OUTSIDE RECORDS SUMMARY | 2024-06-02 10:04 | XMS_ITS | Clinical Summary ---
Author Organization [facility] Address [address] [place] [address] Phone Care Team Providers Care Beverage Distiller Name Role Phone Missy Quinonez Primary Care Provider [phone] [facility] Unavailable [phone] Reason for Visit and Chief Complaint Post Op Visit/Follow Up Plan of Treatment Pending Tests Order Diagnosis Results Due Ordering P andre Follow Up - Appointment 1 Month Displaced intertrochanteric fracture of left femur, init 06/22/22 Glenis Holm MD Last Documented On 3 10:40AM ; [facility] Assessments Includes: Assessments from this encounter No [...] position Assessment plan She is progressing appropriately. [place] removed today. Steri-Strips placed. Okay to get [...] Post Op Visit/Follow Up Glenis Holm MD [facility] 06/22/19 23 8:40AM 9:34AM Insurance Includes: Active Insurance Policies Plan Name Member ID Group # Subscriber Relationship Effect denice Dates 1 - [employer] [id number] Isabel Monzon 2 - Medicare Part B [facility] [id number] Isabel Monzon Clinical Notes Includes: Clinical Notes from this encounter * Progress note Date Encounter Last Documented by 06/21/2022 Post Op Visit/Follow Up Last doc umented on 06/22/2022; 10:40 AM, Glenis Holm MD; [facility] Plan StartCited - Displaced intertrochanteric fracture of [...] position Assessment plan She is progressing appropriately. [place] removed today. Steri-Strips placed. Okay to get the incision wet. Okay to do scar massage. Continue work with PT/OT. Follow- up in 4 to 6 weeks. Rest, ice, elevate to help decrease pain and swelling. Use a walker to help assist with walking to avoid additional falls.
--- OUTSIDE RECORDS SUMMARY | 2024-06-02 10:04 | XMS_ITS ---
Care Plan - [facility] Created on: June 02, 2024 AlixIsabel barber : 1935 Sex: Female Author Organization [facility] Address [address] [place] [address] Phone Care Team Providers Care Focused Factory Manager Name Role Phone Missy Quinonez Primary Care Provider [phone] [facility] Unavailable [phone]
--- OUTSIDE RECORDS SUMMARY | 2024-06-02 10:05 | XMS_ITS | Clinical Summary ---
Author Organization [facility] Address [address] [address] Care Team Providers Care Language Instructor Name Role Phone Missy Quinonez MD Primary Care Provider [phone] Allergies No known active allergies Medications amLODIPine [...] age to complete this topic Care Teams Language Instructor Relationship Specialty Start Date End Date Missy Quinonez MD [address] [place] [address] PCP - General 01/30/19
--- OUTSIDE RECORDS SUMMARY | 2024-06-02 10:05 | XMS_ITS ---
Author Organization [facility] Address [address] [place] [address] Phone Care Team Providers Care Repairing Calibrator Name Role Phone Missy Quinonez Primary Care Provider [phone] [facility], Unavailable [phone] Plan of Treatment No Plan of Treatment [...] Relationship Effect denice Dates 1 - [employer] [id number] Isabel Monzon 2 - Medicare Part B [facility] [id number] Isabel Monzon Clinical Notes Includes: Signed Clinical Notes starting from 03/07/2022 No Clinical Notes Recorded
== END 2024-06-02 10:03 | disposition home or self-care (01) ==
LOC: HO.HMGCX 10:02
PROVIDERS: Visit Provider Physician Assistant Medical
DX: M25.431 Effusion, right wrist (principal); R60.0 Localized edema; M10.9 Gout, unspecified
CPT/HCPCS: 73110; 73130; 99212

== ENCOUNTER → 2024-06-02 10:05 | Outpatient (BNV) | payer MEDICARE, SELFPAY | PROVIDERS: Visit Provider Radiology Diagnostic Radiology | DX: M79.89 Other specified soft tissue disorders (principal) | CPT/HCPCS: 73130 ==